=== PATIENT | female | born 1965 | race Caucasian/White ===

== ENCOUNTER 2016-06-05 11:07 | Emergency (ER) | payer BC ==
[~2016-06-05] VITALS: Ht 167.6 cm; Wt 70.0 kg
[2016-06-05 11:08] VITALS: Ht 167.6 cm; Wt 70.0 kg
[2016-06-05 11:32] VITALS: O2SAT 99
--- NOTE | 2016-06-05 11:42 | DIAGNOSTIC IMAGING REPORT ---
CHEST ONE VIEW PORTABLE HISTORY: Short of breath. Cough. COMPARISON: None. FINDINGS: The lungs are clear. Cardiac silhouette is normal in size. No pleural effusions. No pneumothorax. IMPRESSION: No acute process. Electronically signed by: Tree Acosta M.D. 06/05/2016 11:41 AM Dictated Date/Time: 06/05/2016 11:37 AM
[2016-06-05] MEDS ORDERED: SYMIN160 INH (11:49)
[2016-06-05 12:36] LABS: BASO % 0.3 %; BASO ABS # 0.02 K/uL (0-0.2); COMPLETE YES; EOS % 1.5 %; HEMATOCRIT 38.4 % (37-47); IG% 0.1 %; LYMPH % 34.1 %; LYMPH ABS # 2.46 K/uL (1.2-3.4); MEAN CELL VOLUME 91.6 fL (80-100); MEAN CORPUSCULAR HEMOGLOBIN 31.7 pg (25-34); MEAN CORPUSCULAR HGB CONC 34.6 g/dl (32-36); MEAN PLATELET VOLUME 9.7 fL (7.4-10.4); MONO % 3.6 %; NEUT % 60.4 %; PLATELET COUNT 199 K/uL (130-400); RED BLOOD COUNT 4.19 M/uL (4.2-5.4); WHITE BLOOD COUNT 7.22 K/uL (4.8-10.8)
[2016-06-05 12:49] LABS: INR 1.1 (0.9-1.1); PARTIAL THROMBOPLASTIN RATIO 0.9; PROTHROMBIN TIME (PATIENT) 11.7 SECONDS (9.0-12.0)
[2016-06-05 12:58] LABS: ALB/GLOB RATIO 1.5 (0.9-2); BUN/CREATININE RATIO 21.7 (10-20); CALCIUM 6.8 mg/dl (8.5-10.1); CKMB/CK RATIO 2.4 (0-3.0); CREATININE 0.66 mg/dl (0.60-1.20); POTASSIUM 2.3 mmol/L (3.5-5.1)
[2016-06-05] MEDS ORDERED: MAGNESIUM SULFATE 1GM / D5W 1 GM BAG IV STA (12:59)
[2016-06-05] MEDS ORDERED: POTASSIUM CHLORIDE 10 MEQ TABCR PO STA (12:59)
[2016-06-05] MEDS ORDERED: POTASSIUM CHLORIDE 10 MEQ / 100ML WTR IV STA (12:59)
[2016-06-05 13:41] LABS: MAGNESIUM 2.2 mg/dl (1.8-2.4)
[2016-06-05 13:44] LABS: POTASSIUM 3.2 mmol/L (3.5-5.1)
[2016-06-05 14:26] LABS: URINE APPEARANCE CLEAR (CLEAR); URINE BILIRUBIN NEG (NEG); URINE COLOR YELLOW; URINE NITRITE NEG (NEG); URINE SPECIFIC GRAVITY 1.001 (1.000-1.030); UROBILINOGEN NEG (NEG); ZZUR CULT IF INDIC CLEAN CATCH NO
[2016-06-05 14:27] LABS: MANUAL MICROSCOPIC REQUIRED? NO; REVIEW REQ? NO
[2016-06-05] MEDS ORDERED: SODIUM CHLORIDE 0.9% 500ML 500 ML IV STA (14:50)
[2016-06-05] MEDS ORDERED: OPTIRAY 320 IV PRN (16:00)
--- NOTE | 2016-06-05 16:02 | DIAGNOSTIC IMAGING REPORT ---
CHEST CTA for PULMONARY ARTERIES CT DOSE: 209.74 mGy.cm HISTORY: Chest pain dyspnea TECHNIQUE: Multiaxial CT images of the chest were performed following the intravenous administration of contrast to evaluate the pulmonary arteries. Maximal intensity projection images were also obtained. COMPARISON STUDY: None. FINDINGS: There is a normal caliber thoracic aorta with no evidence for dissection. There is no evidence for pulmonary embolus. No pleural effusions. No pneumothorax. The liver and spleen are unremarkable. No mediastinal or hilar lymphadenopathy. The central airways are patent. The lungs are clear. There is a 4 mm nodular density left base laterally transaxial image 25. IMPRESSION: No evidence for pulmonary embolus. The lungs are clear. 4 mm nodular density left base with follow-up per Fleischner criteria. Please refer to below summary of Fleischner criteria recommendations for follow-up of incidental CT nodules (Radha Oconnor, Guidelines for management of small pulmonary nodules detected on CT scans: A statement from the Fleischner Society, Radiology 237: [id number].) Low Risk Patient: Minimal or no smoking or other known risk factors for malignancy <=4 mm: No follow-up needed. >4-6 mm: Initial follow-up CT at 12 months; if unchanged, no further follow-up. >6-8 mm: Initial follow-up CT at 6-12 months then at 18-24 months if no change. >8 mm: Follow-up CT at \R\3, 9, 24 months, or PET and/or biopsy. High Risk Patient: History of smoking or other known risk factors <=4 mm: Follow-up at 12 months; if unchanged, no further follow-up. >4-6 mm: Initial follow-up CT at 6-12 months then at 18-24 months if no change. >6-8 mm: Initial follow-up CT at 3-6 months then at 9-12 and 24 months if no change. >8 mm: Same as low risk patient. Note: Nodule size measured as average of length and width. Ground glass or partly solid nodules may require longer follow-up to exclude indolent adenocarcinoma. Electronically signed by: Jose De Jesus Tobar M.D. 06/05/2016 4:00 PM Dictated Date/Time: 06/05/2016 3:55 PM
[2016-06-05] MEDS ORDERED: POTA20TA13 PO (16:30)
[2016-06-05] MEDS ORDERED: PRED50TA PO (16:30)
--- NOTE | 2016-06-05 16:32 | EMERGENCY ROOM VISIT NOTE ---
History First contact with patient: 12:01 Chief Complaint: RESPIRATORY PROBLEMS Stated Complaint: SHORTNESS OF BREATH/SYNCOPE Nursing Triage Summary: EMS report: "working outside, came in to warm building, had asthma attack, passed out twice " med with duoneb , solumedrol. has hand spasms, [id number]. placed on nrb and enc slow breathing. denies hitting head with "passing out" History of Present Illness The patient is a 50 year old female who presents to the Emergency Department via EMS for evaluation after an asthma attack and sick be 2. The patient reports loss any history of asthma. She takes Symbicort as well as Advair for her symptoms. She reports that she was outside in the cold while at work today , and when she went back inside, she developed a coughing fit followed by wheezing and shortness of breath. She reports this is consistent with all previous episodes of asthma attack. Of concern, the patient reports that she had 2 episodes where she lost consciousness. She did not fall. She did not strike her head. She was lowered to the ground by coworkers. She did not have her inhaler present. She did receive Solu-Medrol as well as DuoNeb 2 in route to the emergency department with complete resolve of symptoms. The patient complains of some tightness in her chest prior to her single episode. The patient rates her current discomfort as a 0/10. She denies any fevers, chills, recent illness, headaches, dizziness, palpitations, hemoptysis, nausea, vomiting , abdominal pain. The patient does use oral contraception. She denies any history of smoking. She denies any recent long-distance travel. This first on the patient is had an episode of syncopal in association with her asthma attack. Review of Systems A complete 10-point Review of Systems was discussed with the patient, with pertinent positives and negatives listed in the History of Present Illness. All remaining Review of Systems questions can be considered negative unless otherwise specified. Social History Smoking Status: Never Smoker Smokeless Tobacco Use: No Drug Use: none Marital Status: Housing Status: lives with family Occupation Status: employed Current/Historical Medications Scheduled Budesonide/Formoterol Fumarate (Symbicort 160/4.5 Inhaler ), 2 PUFFS INH DAILY Potassium Chloride Microencaps (Potassium Chloride Er), 1 TAB PO DAILY Prednisone (Prednisone), 50 MG PO DAILY Allergies Coded Allergies: No Known Allergies (Unverified , 06/05/16) Physical Exam Vital Signs Date Time Temp Pulse Resp B/P Pulse Ox O2 Delivery O2 Flow Rate FiO2 06/05/16 16:49 36.8 85 18 101/56 97 06/05/16 16:47 85 18 101/56 97 Room Air 06/05/16 16:20 88 18 116/66 97 Room Air 100/64 113/82 06/05/16 15:28 112/71 06/05/16 14:58 107/58 06/05/16 14:34 75 18 120/60 Room Air 06/05/16 13:58 93/58 06/05/16 13:33 80 17 06/05/16 13:29 75 06/05/16 13:21 108/61 06/05/16 13:03 88 18 06/05/16 12:58 99/73 06/05/16 12:57 71 15 06/05/16 12:52 71 18 06/05/16 12:49 114/69 06/05/16 12:47 76 22 06/05/16 11:47 80 20 100 06/05/16 11:42 84 21 98 06/05/16 11:37 73 15 97 06/05/16 11:32 85 18 100 06/05/16 11:32 99 Room Air 10.0 06/05/16 11:31 99 Room Air 06/05/16 11:27 83 17 100 06/05/16 11:22 83 06/05/16 11:22 85 26 100 06/05/16 11:17 79 12 100 06/05/16 11:15 100 Non-Rebreather 10.0 06/05/16 11:15 100 Non-Rebreather 10.0 06/05/16 11:11 140/61 06/05/16 11:08 36.8 96 30 140/61 100 Room Air Pain Rating (0-10): 0 Physical Exam VITAL SIGNS - Vital signs and nursing notes were reviewed. GENERAL - 50-year-old female appearing her stated age who is in no acute distress. Communicates well with provider and answers questions appropriately. HEAD - NC/AT. EYES - PERRL with EOMI bilaterally. Sclera anicteric. Palpebral conjunctiva pink and moist with no injection noted. EARS - No deformities of external structures noted on gross examination bilaterally. No pain elicited with palpation of the tragus bilaterally. External auditory canals without discharge or otorrhea. Tympanic membranes pearly dubois without retraction or bulging. NOSE - Midline and without cyanosis. No epistaxis or purulent drainage noted. Septum midline without deviation or septal hematoma noted. MOUTH/OROPHARYNX - Without perioral cyanosis. Buccal mucosa pink and moist and without leukoplakia. Tongue midline with equal elevation of palate bilaterally. No tonsillar hypertrophy, erythema, or exudates noted. Good dentition noted. NECK - Neck with FROM. Supple to palpation. LUNGS - Chest wall symmetric without accessory muscle use, intercostals retractions, or central cyanosis. Normal vesicular breath sounds CTA B/L. No wheezes, rales, or rhonchi appreciated. CARDIAC - RRR with S1/S2. No murmur, rubs, or gallops appreciated. No reproducible tenderness to palpation appreciated over the anterior chest wall. ABDOMEN - Abdominal contour flat and without pulsations or visible masses. BS normoactive all four quadrants. No tenderness, palpable masses, hepatosplenomegaly, or ascites noted. EXTREMITIES - No clubbing or peripheral cyanosis. No pretibial edema present. +3 /5 radial and dorsalis pedis pulses palpated throughout. +5/5 strength noted in UE/LE bilaterally. NEUROLOGIC - Cranial nerves II through XII grossly intact. Sensory intact to light touch throughout. PSYCH - A&Ox3 and cooperates fully with examiner. Pt is very pleasant and interacts well with examiner. Medical Decision & Procedures ER Provider Diagnostic Interpretation: Radiological imaging and reports were reviewed by myself. Radiologist's Interpretation as follows: CHEST ONE VIEW PORTABLE HISTORY: Short of breath. Cough. COMPARISON: None. FINDINGS: The lungs are clear. Cardiac silhouette is normal in size. No pleural effusions. No pneumothorax. IMPRESSION: No acute process. CHEST CTA for PULMONARY ARTERIES CT DOSE: 209.74 mGy.cm HISTORY: Chest pain dyspnea TECHNIQUE: Multiaxial CT images of the chest were performed following the intravenous administration of contrast to evaluate the pulmonary arteries. Maximal intensity projection images were also obtained. COMPARISON STUDY: None. FINDINGS: There is a normal caliber thoracic aorta with no evidence for dissection. There is no evidence for pulmonary embolus. No pleural effusions. No pneumothorax. The liver and spleen are unremarkable. No mediastinal or hilar lymphadenopathy. The central airways are patent. The lungs are clear. There is a 4 mm nodular density left base laterally transaxial image 25. IMPRESSION: No evidence for pulmonary embolus. The lungs are clear. 4 mm nodular density left base with follow-up per Fleischner criteria. Please refer to below summary of Fleischner criteria recommendations for follow-up of incidental CT nodules (Radha Oconnor, Guidelines for management of small pulmonary nodules detected on CT scans: A statement from the Fleischner Society, Radiology 237: [phone].) Low Risk Patient: Minimal or no smoking or other known risk factors for malignancy <=4 mm: No follow-up needed. >4-6 mm: Initial follow-up CT at 12 months; if unchanged, no further follow-up. >6-8 mm: Initial follow-up CT at 6-12 months then at 18-24 months if no change. >8 mm: Follow-up CT at \\R\\3, 9, 24 months, or PET and/or biopsy. High Risk Patient: History of smoking or other known risk factors <=4 mm: Follow-up at 12 months; if unchanged, no further follow-up. >4-6 mm: Initial follow-up CT at 6-12 months then at 18-24 months if no change. >6-8 mm: Initial follow-up CT at 3-6 months then at 9-12 and 24 months if no change. >8 mm: Same as low risk patient. Note: Nodule size measured as average of length and width. Ground glass or partly solid nodules may require longer follow-up to exclude indolent adenocarcinoma. Laboratory Results 06/05/16 11:30 Red Blood Count 4.19, Mean Corpuscular Volume 91.6, Mean Corpuscular Hemoglobin 31.7, Mean Corpuscular Hemoglobin Concent 34.6, Mean Platelet Volume 9.7, Neutrophils (%) (Auto) 60.4, Lymphocytes (%) (Auto) 34.1, Monocytes (%) (Auto) 3.6, Eosinophils (%) (Auto) 1.5, Basophils (%) (Auto) 0.3, Neutrophils # (Auto) 4.36, Lymphocytes # (Auto) 2.46, Monocytes # (Auto) 0.26, Eosinophils # (Auto) 0.11, Basophils # (Auto) 0.02 06/05/16 11:30 06/05/16 13:08 Test 06/05/16 11:30 06/05/16 12:33 06/05/16 13:08 06/05/16 13:20 White Blood Count 7.22 K/uL (4.8-10.8) Red Blood Count 4.19 M/uL (4.2-5.4) Hemoglobin 13.3 g/dL (12.0-16.0) Hematocrit 38.4 % (37-47) Mean Corpuscular Volume 91.6 fL (80-100) Mean Corpuscular Hemoglobin 31.7 pg (25-34) Mean Corpuscular Hemoglobin Concent 34.6 g/dl (32-36) Platelet Count 199 K/uL (130-400) Mean Platelet Volume 9.7 fL (7.4-10.4) Neutrophils (%) (Auto) 60.4 % Lymphocytes (%) (Auto) 34.1 % Monocytes (%) (Auto) 3.6 % Eosinophils (%) (Auto) 1.5 % Basophils (%) (Auto) 0.3 % Neutrophils # (Auto) 4.36 K/uL (1.4-6.5) Lymphocytes # (Auto) 2.46 K/uL (1.2-3.4) Monocytes # (Auto) 0.26 K/uL (0.11-0.59) Eosinophils # (Auto) 0.11 K/uL (0-0.5) Basophils # (Auto) 0.02 K/uL (0-0.2) RDW Standard Deviation 43.9 fL (36.4-46.3) RDW Coefficient of Variation 13.2 % (11.5-14.5) Immature Granulocyte % (Auto) 0.1 % Immature Granulocyte # (Auto) 0.01 K/uL (0.00-0.02) Prothrombin Time 11.7 SECONDS (9.0-12.0) Prothromb Time International Ratio 1.1 (0.9-1.1) Activated Partial Thromboplast Time 22.9 SECONDS (21.0-31.0) Partial Thromboplastin Ratio 0.9 D-Dimer 23909 ug/L FEU (0-500) Anion Gap 15.0 mmol/L (3-11) Est Creatinine Clear Calc Drug Dose 94.3 ml/min Estimated GFR () 118.5 Estimated GFR (Non- 102.3 BUN/Creatinine Ratio 21.7 (10-20) Calcium Level 6.8 mg/dl (8.5-10.1) Total Bilirubin 0.7 mg/dl (0.2-1) Aspartate Amino Transf (AST/SGOT) 8 U/L (15-37) Alanine Aminotransferase (ALT/SGPT) 18 U/L (12-78) Alkaline Phosphatase 39 U/L (45-117) Total Creatine Kinase 62 U/L (26-192) Creatine Kinase MB 1.5 ng/ml (0.5-3.6) Creatine Kinase MB Ratio 2.4 (0-3.0) Total Protein 5.4 gm/dl (6.4-8.2) Albumin 3.2 gm/dl (3.4-5.0) Globulin 2.2 gm/dl (2.5-4.0) Albumin/Globulin Ratio 1.5 (0.9-2) Bedside D-Dimer 6 ng/mlFEU (0-450) Bedside Troponin I 0.000 ng/ml (0-0.045) Magnesium Level 2.2 mg/dl (1.8-2.4) Urine Color YELLOW Urine Appearance CLEAR (CLEAR) Urine pH 5.0 (4.5-7.5) Urine Specific Perry 1.001 (1.000-1.030) Urine Protein NEG (NEG) Urine Glucose (UA) NEG (NEG) Urine Ketones NEG (NEG) Urine Occult Blood 1+ (NEG) Urine Nitrite NEG (NEG) Urine Bilirubin NEG (NEG) Urine Urobilinogen NEG (NEG) Urine Leukocyte Esterase NEG (NEG) Urine WBC (Auto) 0 /hpf (0-5) Urine RBC (Auto) 0-4 /hpf (0-4) Urine Hyaline Casts (Auto) 0 /lpf (0-5) Urine Epithelial Cells (Auto) 5-10 /lpf (0-5) Urine Bacteria (Auto) NEG (NEG) Urine Test NEG (NEG) Medications Administered Medications (Trade) Dose Ordered Sig/Rahul Route Start Time Stop Time Status Last Admin Dose Admin Magnesium Sulfate (Magnesium Sulfate) 2 gm NOW STAT IV 06/05/16 12:59 06/05/16 13:00 DC 06/05/16 13:07 2 GM Potassium Chloride (Klor-Con M10) 20 meq NOW STAT PO 2/13/17 12:59 06/05/16 13:00 DC 06/05/16 13:06 20 MEQ Potassium Chloride 10 meq 10 meq NOW STAT IV 06/05/16 12:59 06/05/16 13:00 DC 06/05/16 13:07 10 MEQ Sodium Chloride (Nss 500ml) 500 ml @ 999 mls/hr Q31M STAT IV 06/05/16 14:50 06/05/16 15:20 DC 06/05/16 14:50 999 MLS/HR Procedure Patient was placed on the water leak repairer and monitored throughout the entire extent of their stay. In addition, the patient's pulse oximetry was monitored throughout the entire stay. Any abnormalities or aberrancies were addressed appropriately. ECG Indication: SOB/dyspnea, syncope Rate (beats per minute): 66 Rhythm: normal sinus Findings: no acute ischemic change, prolonged QT Comparison ECG Date: no prior available ED Course Patient was seen and evaluated by myself. Labs were drawn, saline lock in place. The patient was hydrated with a 500 mL normal saline bolus. Chest x- ray and EKG were obtained. Laboratory results demonstrate no acute leukocytosis , worrisome anemia, or bandemia. The patient was found to have a potassium of 2.3. A repeat potassium level was ordered as well as 2 g of magnesium and a K rider as well as 20 mg once of oral potassium. Cardiac enzymes are negative. Troponin is negative. The patient's d-dimer was significantly elevated. Laboratory results and imaging studies were discussed with the patient. CTA of the chest was obtained. Imaging results above. Case was reviewed with my attending physician who agrees the diagnostic approach and treatment plan. The patient was educated on worrisome symptoms for return visit to the emergency department. Patient discharged home in good condition. Medical Decision Given the patient's presentation and stated complaint, I did elect to perform the above-mentioned workup. The patient resents today after 6 to be 2 during an asthma attack. The patient has not had similar symptoms previously. She has no fever leukocytosis. Of concern, patient was found to have a potassium of 2.3 on initial assessment. This certainly could be related to her recent albuterol treatments in route, however, this was treated as discussed above. She has no EKG changes of concern at this point. Chest x-ray demonstrated no acute findings. Her d-dimer was significant elevated. Because of this, in the setting of syncope, a CTA was obtained of the chest. Thankfully, this is found be unremarkable. The patient will follow closely with her primary care provider. She was placed on steroids orally for the next few days. She will return for any changing or worsening symptoms. Patient discharged home afebrile and in good condition. In the evaluation and treatment of this patient, the following differential diagnoses were considered: NE, ASC, Dysrhythmia, Angina, Mediastinitis, GERD, Esophagitis, PE, Pneumonia, Bronchitis, Costochondritis, Rib Fracture, Zoster. Impression Primary Impression: Asthma attack Additional Impressions: Syncope Hypokalemia Departure Information Dispostion Home / Self-Care Condition GOOD Prescriptions Potassium Chloride Microencaps (POTASSIUM CHLORIDE ER) 20 Meq Tab 1 TAB PO DAILY for 7 Days, #7 TAB 0 Refills Prov: Chase Parikh PA-C 06/05/16 Prednisone (Prednisone) 50 Mg Tab 50 MG PO DAILY for 4 Days, #4 TAB Prov: Chase Parikh PA-C 06/05/16 Referrals Scott Stinson M.D. (PCP) Patient Instructions Asthma - [facility], Hypokalemia Dc, [facility], [facility] Additional Instructions You have been seen in the emergency department today for an asthma attack and syncopal episode. You have also been found to have low potassium level. Please take the potassium for the next 7 days as prescribed. Please have your potassium level rechecked by your primary care provider in one week. You have been prescribed Prednisone 50 mg to be taken orally once a day for the next 4 days. This is an anti-inflammatory medicine to be used to help minimize your symptoms. You should take the COMPLETE course of the medication. Follow-up with your primary care provider from today's visit. You have been found to have pulmonary nodules on your CAT scan. You will need to follow-up for repeat imaging studies as suggested by radiology. Return for any changing or worsening symptoms. Problem Qualifiers Additional Impressions: Syncope Syncope type: unspecified Qualified Codes: R55 - Syncope and collapse
[2016-06-05 16:49] VITALS: BP 101/56; PULSE 85; TEMP 36.8; O2SAT 97
== END 2016-06-05 16:49 | disposition home or self-care (01) ==
LOC: C.EDC 11:12
DX: J45.909 Unspecified asthma, uncomplicated (principal); R55 Syncope and collapse; E87.6 Hypokalemia; Z79.899 Other long term (current) drug therapy